=== PATIENT | female | born 2000 | race Two or more races ===

== ENCOUNTER 2021-06-08 22:06 | Emergency (ER) | payer MEDICAID ==
[~2021-06-08] VITALS: Ht 162.6 cm; Wt 55.0 kg
[2021-06-08 23:15] LABS: BASO % 0 % (0-3); EOS # 0.1 x10^3/uL (0.0-0.7); EOS % 1 % (0-3); HEMATOCRIT 33.6 % (36.0-47.0); LYMPH # 1.9 x10^3/uL (1.0-4.8); LYMPH % 20 % (24-48); MEAN CORPUSCULAR HEMOGLOBIN 26 pg (25-35); MEAN CORPUSCULAR HGB CONC 33 g/dL (31-37); MEAN CORPUSCULAR VOLUME 81 fL (79-100); MONO # 0.7 x10^3/uL (0.0-1.1); MONO % 7 % (0-9); NEUT % 72 % (31-73); PLATELET COUNT 193 x10^3/uL (140-400); RED BLOOD COUNT 4.18 x10^6/uL (3.50-5.40); RED CELL DISTRIBUTION WIDTH 14.7 % (11.5-14.5); WHITE BLOOD COUNT 9.8 x10^3/uL (4.0-11.0)
[2021-06-08 23:23] LABS: CALCIUM 8.4 mg/dL (8.5-10.1); CREATININE 0.4 mg/dL (0.6-1.0); GFR 203.5; POTASSIUM 3.7 mmol/L (3.5-5.1)
[2021-06-08 23:29] LABS: ALBUMIN 3.6 g/dL (3.4-5.0); TOTAL BILIRUBIN 0.2 mg/dL (0.2-1.0); TOTAL PROTEIN 7.2 g/dL (6.4-8.2)
--- NOTE | 2021-06-08 23:33 | PHYS DOC ---
Past Medical History Past Surgical History: No Surgical History Smoking Status: Never Smoker Alcohol Use: None General Adult EDM: Chief Complaint: VAGINAL BLEEDING HPI: HPI: Patient is a 20 year old female who presents with vaginal bleeding. Patient states the bleeding began yesterday, stopped, and then resumed today. 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 She reports that she has not used pads or tampons, and that the bleeding is more liquid. Patient reports associated cramping that is similar to menstrual cramping, but more intense. This pain comes and goes. Patient denies any vaginal pain, dysuria, abdominal pain, nausea, vomiting, fever, chills, weakness. Patient has had an ultrasound confirming at an [facility] and was told she did not need rhogam at that time. Patient has a follow-up appointment scheduled on Friday. Patient's due date is December 15, 2021. This puts her at a gestational age of 13 weeks and 0 days. Review of Systems: Review of Systems: Constitutional: See HPI Eyes: Denies change in visual acuity, visual field deficits or discharge HENT: Denies ear pain, nasal congestion or sore throat Respiratory: Denies cough or shortness of breath Cardiovascular: Denies chest pain, palpitations or edema GI: See HPI : See HPI Musculoskeletal: Denies back pain or joint pain Integument: Denies rash or other skin lesion Neurologic: Denies headache, focal weakness or sensory changes Heart Score: C/O Chest Pain: No Physical Exam: PE: Constitutional: Well developed, well nourished, no acute distress, non-toxic appearance. HENT: Normocephalic, atraumatic, bilateral external ears normal, nose normal. Eyes: EOMI, conjunctiva normal, no discharge. Neck: Normal range of motion, no stridor. Abdomen: Bowel sounds normal, soft, no tenderness, no masses, no pulsatile masses. Skin: Warm, dry, no erythema, no rash. Back: No tenderness, no CVA tenderness. Extremities: No tenderness, no cyanosis, no clubbing, ROM intact, no edema. Neurologic: Alert and oriented x4, no focal deficits noted. Current Patient Data: Labs: Laboratory Tests Test 06/08/21 23:09 06/09/21 00:45 White Blood Count 9.8 x10^3/uL (4.0-11.0) Red Blood Count 4.18 x10^6/uL (3.50-5.40) Hemoglobin 11.0 g/dL (12.0-15.5) Hematocrit 33.6 % (36.0-47.0) Mean Corpuscular Volume 81 fL (79-100) Mean Corpuscular Hemoglobin 26 pg (25-35) Mean Corpuscular Hemoglobin Concent 33 g/dL (31-37) Red Cell Distribution Width 14.7 % (11.5-14.5) Platelet Count 193 x10^3/uL (140-400) Neutrophils (%) (Auto) 72 % (31-73) Lymphocytes (%) (Auto) 20 % (24-48) Monocytes (%) (Auto) 7 % (0-9) Eosinophils (%) (Auto) 1 % (0-3) Basophils (%) (Auto) 0 % (0-3) Neutrophils # (Auto) 7.0 x10^3/uL (1.8-7.7) Lymphocytes # (Auto) 1.9 x10^3/uL (1.0-4.8) Monocytes # (Auto) 0.7 x10^3/uL (0.0-1.1) Eosinophils # (Auto) 0.1 x10^3/uL (0.0-0.7) Basophils # (Auto) 0.0 x10^3/uL (0.0-0.2) Maternal Serum HCG Beta Subunit 96778 mIU/mL (0-5) Sodium Level 138 mmol/L (136-145) Potassium Level 3.7 mmol/L (3.5-5.1) Chloride Level 103 mmol/L (98-107) Carbon Dioxide Level 25 mmol/L (21-32) Anion Gap 10 (6-14) Blood Urea Nitrogen 9 mg/dL (7-20) Creatinine 0.4 mg/dL (0.6-1.0) Estimated GFR (Cockcroft-Gault) 203.5 BUN/Creatinine Ratio 23 (6-20) Glucose Level 92 mg/dL (70-99) Calcium Level 8.4 mg/dL (8.5-10.1) Total Bilirubin 0.2 mg/dL (0.2-1.0) Aspartate Amino Transf (AST/SGOT) 14 U/L (15-37) Alanine Aminotransferase (ALT/SGPT) 14 U/L (14-59) Alkaline Phosphatase 58 U/L (46-116) Total Protein 7.2 g/dL (6.4-8.2) Albumin 3.6 g/dL (3.4-5.0) Albumin/Globulin Ratio 1.0 (1.0-1.7) Urine Collection Type Void Urine Color Yellow Urine Clarity Cloudy Urine pH 6.0 (<5.0-8.0) Urine Specific [place] 1.015 (1.000-1.030) Urine Protein Negative mg/dL (NEG-TRACE) Urine Glucose (UA) Negative mg/dL (NEG) Urine Ketones (Stick) Negative mg/dL (NEG) Urine Blood Moderate (NEG) Urine Nitrite Negative (NEG) Urine Bilirubin Negative (NEG) Urine Urobilinogen Dipstick 0.2 mg/dL (0.2 mg/dL) Urine Leukocyte Esterase Small (NEG) Urine RBC 6-10 /HPF (0-2) Urine WBC 5-10 /HPF (0-4) Urine Squamous Epithelial Cells Many /LPF Urine Bacteria Many /HPF (0-FEW) Urine Mucus Mod /LPF 06/08/21 23:09 Vital Signs: Vital Signs Date Time Temp Pulse Resp B/P (MAP) Pulse Ox O2 Delivery O2 Flow Rate FiO2 06/08/21 22:11 98.1 82 16 115/64 (81) 98 Room Air 98.1 Radiology/Procedures: Radiology/Procedures: PROCEDURE: OB <14 WKS W/TV US OB <14 WKS +TV DATE: 06/08/2021 11:24 PM INDICATION: vaginal bleeding, fluid, 3 mo gestation. LMP 03/11/2021 COMPARISON: None. TECHNIQUE: Transabdominal ultrasonography of the pelvis was performed. Color Doppler and duplex were utilized as appropriate. FINDINGS: The uterus measures 10.9 x 10.4 x 9.6 cm. Cervix is closed. There is living intrauterine gestation with heart rate of 160 beats per minute. Gestational sac is normal in morphology. No perigestational fluid. [place]-rump length measurement of 6.8 cm corresponds with estimated ultrasound gestational age of 13 weeks and 0 days. There is no free pelvic fluid. Ovaries were not visualized. IMPRESSION: 1. Single living intrauterine gestation. 2. [place]-rump length corresponds with estimated ultrasound gestational age of 13 weeks and 0 days for an EDC of 12/14/2021. Electronically signed by: John Fitch MD (06/09/2021 12:08 AM) [facility] Course & Med Decision Making: Course & Med Decision Making Pertinent Labs and Imaging studies reviewed. (See chart for details) Patient is a 20 year old female who presents with vaginal bleeding and fluid at 13 weeks gestation. Patient has established care and was told she did not need rhogam. Workup will include labs, transvaginal ultrasound, urinalysis. Workup is unremarkable. Patient was reassured and encouraged to keep her follow up appointment that is scheduled on Friday. All of her questions were answered. She understands and is agreeable to discharge plan. [place] Disclaimer: [place] Disclaimer: This electronic medical record was generated, in whole or in part, using a voice recognition dictation system. Departure Departure Impression: Primary Impression: Vaginal bleeding during Additional Impression: 13 weeks gestation of Disposition: 01 HOME / SELF CARE / HOMELESS Condition: STABLE Patient Instructions: Vaginal Bleeding During , [id number] Additional Instructions: EMERGENCY DEPARTMENT GENERAL DISCHARGE INSTRUCTIONS Thank you for coming to [facility] Emergency Department (ED) today and trusting us with you care. We trust that you had a positive experience in our Emergency Department. If you wish to speak to the department management, you may call the director at . YOUR FOLLOW UP INSTRUCTIONS ARE FOLLOWS: 1. Follow up with your primary care doctor. If you do not have a primary doctor, please ask for a resource list of physicians or clinics that may be able to assist you with follow up care. 2. The emergency provider has interpreted your imaging studies, if any were ordered. The radiology digital imaging technician also reviewed them. If there is a change in the findings, you will be notified in 48 hours when at all possible. 3. If a lab test or culture has been done, your results will be reviewed and you will be notified if you need a change in treatment. 4. Follow instructions verbalized to you and refer to the printouts if needed. ADDITIONAL INSTRUCTIONS AND INFORMATION: 1. Your care today has been supervised by a physician who is specially trained in emergency care. Many problems require more than one evaluation for a complete diagnosis and treatment. We recommend that you schedule your follow up appointment as recommended to ensure complete treatment of you illness or injury. If you are unable to obtain follow up care and continue to have a problem, or if your condition worsens, we recommend that you return to the ED. 2. We are not able to safely determine your condition over the phone nor are we able to give sound medical advice over the phone. For these safety reasons, if you call for medical advice we will ask you to come to the ED for further evaluation. 3. If you have any questions regarding these discharge instructions please call the ED at . SAFETY INFORMATION: In the interest of safety, wellness, and injury prevention; we encourage you to wear your seat belt, if you smoke; quite smoking, and we encourage family to use a protective helmet for bicycling and other sporting events that present an increased risk for head injury. IF YOUR SYMPTOMS WORSEN OR NEW SYMPTOMS DEVELOP, OR YOU HAVE CONCERNS ABOUT YOUR CONDITION; OR IF YOUR CONDITION WORSENS WHILE YOU ARE WAITING FOR YOUR FOLLOW UP APPOINTMENT; EITHER CONTACT YOUR PRIMARY CARE DOCTOR, THE PHYSICIAN WHOSE NAME AND NUMBER YOU WERE GIVEN, OR RETURN TO THE ED IMMEDIATELY. LEIA PALOMO Jun 08, 2021 23:33
--- NOTE | 2021-06-09 00:11 | RAD ---
US OB <14 WKS +TV DATE: 06/08/2021 11:24 PM INDICATION: vaginal bleeding, fluid, 3 mo gestation. LMP 03/11/2021 COMPARISON: None. TECHNIQUE: Transabdominal ultrasonography of the pelvis was performed. Color Doppler and duplex were utilized as appropriate. FINDINGS: The uterus measures 10.9 x 10.4 x 9.6 cm. Cervix is closed. There is living intrauterine gestation with heart rate of 160 beats per minute. Gestational sac is no rmal in morphology. No perigestational fluid. [place]-rump length measurement of 6.8 cm corresponds with estimated ultrasound gestational age of 13 w eeks and 0 days. There is no free pelvic fluid. Ovaries were not visualized. IMPRESSION: 1. Single living intrauterine gestation. 2. [place]-rump length corresponds with estimated ultrasound gestational age of 13 weeks and 0 days for an EDC of 12/14/2021. Electronically signed by: John Fitch MD (06/09/2021 12:08 AM) [facility]
[2021-06-09 00:44] VITALS: BP 102/58
[2021-06-09 00:57] LABS: BILIRUBIN,URINE NEGATIVE (NEG); CLARITY,URINE CLOUDY; COLOR,URINE YELLOW; NITRITE,URINE NEGATIVE (NEG); PROTEIN,URINE NEGATIVE (NEG-TRACE); UROBILINOGEN,URINE 0.2 mg/dL (0.2 mg/dL)
[2021-06-09 01:06] LABS: BACTERIA,URINE MANY /HPF (0-FEW)
== END 2021-06-09 01:35 | disposition home or self-care (01) ==
LOC: ER 22:06
DX: O46.91 Antepartum hemorrhage, unspecified, first trimester (principal); Z3A.13 13 weeks gestation of pregnancy
CPT/HCPCS: 36415; 76801; 76817; 80053; 81001; 84702; 85025; 87086; 99285-25